=== PATIENT | male | born 1980 | race African-American/Black ===

== ENCOUNTER 2025-01-30 16:02 | Emergency (ER) | payer OTHER ==
[~2025-01-30] VITALS: Ht 175.3 cm; Wt 62.7 kg
[2025-01-30 16:34] VITALS: TEMP 99.7
[2025-01-30 17:20] LABS: COVID AG,FIA SOURCE NASAL SWAB
[2025-01-30] MEDS: LIDOCAINE 1%/EPI 1:200,000/PF 10 ML VIAL ID ONE (17:48)
[2025-01-30] MEDS: KETOROLAC TROMETHAMINE 30 MG/ML VIAL IM ONE (17:49)
[2025-01-30 18:06] LABS: SARS-COV2 (COVID) ANTIGEN,FIA Negative (Negative)
[2025-01-30 18:40] LABS: PLATELET COUNT (AUTO) 352 K/uL (150-450); RED BLOOD CELL COUNT(AUTO) 4.79 MIL/uL (4.50-5.90); RED CELL DISTRIBUTION WIDTH 14.0 % (11.5-14.5); WHITE BLOOD COUNT (AUTO) 16.9 K/uL (4.5-11.0)
[2025-01-30 18:48] LABS: CALCIUM, TOTAL 9.4 mg/dL (8.8-10.5); CREATININE 1.28 mg/dL (0.60-1.30); GLOMERULAR FILTR. RATE CALC > 60 mL/min (>60); GLUCOSE,RANDOM 131 mg/dL (70-110); SODIUM SERUM 138 mmol/L (136-145); UREA NITROGEN, BLOOD 15 mg/dL (7-18)
[2025-01-30 18:51] LABS: BAND NEUTROPHILS % (MANUAL) 2 % (0-5); LYMPHOCYTES % (MANUAL) 7 % (22-44); MONOCYTES % (MANUAL) 8 % (2-9); SEGMENTED NEUTROPHILS % 83 % (40-70)
[2025-01-30] MEDS ORDERED: CEPH-558 PO (18:53)
[2025-01-30] MEDS ORDERED: SULF1TAB94 PO (18:53)
[2025-01-30] MEDS: OxyCODONE HCL/ACETAMINOPHEN 5-325 MG TABLET PO ONE (18:53)
[2025-01-30 19:11] VITALS: BP 111/74; PULSE 88; RESP 18; O2SAT 98
[2025-01-30 19:39] LABS: INFLUENZA A-RTPCR,COMBO NEGATIVE (NEGATIVE); INFLUENZA B-RTPCR,COMBO NEGATIVE (NEGATIVE); RESPIRATORY SYNCYTIAL VRS-PCR NEGATIVE (NEGATIVE); SARS COVID19 RTPCR, COMBO NEGATIVE (NEGATIVE)
[2025-01-31] MEDS ORDERED: SULF1TAB94 PO (12:28)
[2025-01-31] MEDS ORDERED: CEPH-558 PO (12:28)
== END 2025-01-30 19:22 | disposition home or self-care (01) ==
LOC: EMS 16:39
DX: K61.1 Rectal abscess (principal); J11.1 Influenza due to unidentified influenza virus with other respiratory manifestations; L02.31 Cutaneous abscess of buttock; F17.210 Nicotine dependence, cigarettes, uncomplicated; Z98.890 Other specified postprocedural states; Z20.822 Contact with and (suspected) exposure to COVID-19
CPT/HCPCS: 46040; 99284; 87637; 80048; 85007; 85027; 36415; 96372; 87426; J1885; J3490; 10060; 11200

== ENCOUNTER 2025-02-02 10:24 | Emergency (ER) | payer OTHER ==
[~2025-02-02] VITALS: Ht 175.3 cm; Wt 63.6 kg
[~2025-02-02 10:24] MED LIST: CEPH-558 PO; SULF1TAB94 PO
[2025-02-02 10:30] VITALS: BP 114/70; PULSE 96; RESP 14; TEMP 98.1; O2SAT 99
== END 2025-02-02 11:22 | disposition home or self-care (01) ==
LOC: EMS 10:24
DX: L02.31 Cutaneous abscess of buttock (principal); F17.210 Nicotine dependence, cigarettes, uncomplicated; Z48.01 Encounter for change or removal of surgical wound dressing; Z79.899 Other long term (current) drug therapy; Z98.890 Other specified postprocedural states
CPT/HCPCS: 99282; Z7502